=== PATIENT | female | born 2000 | race Caucasian/White ===

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

== ENCOUNTER 2020-06-17 14:45 | Emergency (ER) | payer OTHER ==
[2020-06-17] MEDS ORDERED: Zofran 4 MG/2 ML VIAL IV ONE (15:02)
[2020-06-17] MEDS ORDERED: Sodium Chloride 0.9% 1000 ML 1,000 ML IV STA (15:02)
[2020-06-17] MEDS ORDERED: MORPHINE SULFATE 4 MG INJ IV ONE (15:02)
[2020-06-17] MEDS ORDERED: TYLENOL 325 MG PO ONE (15:02)
[2020-06-17] MEDS ORDERED: Zofran 4 MG/2 ML VIAL ONE (15:23)
[2020-06-17] MEDS ORDERED: TYLENOL 325 MG ONE (15:24)
[2020-06-17] MEDS ORDERED: Sodium Chloride 0.9% 1000 ML 1,000 ML ONE (15:24)
[2020-06-17] MEDS ORDERED: MORPHINE SULFATE 4 MG INJ ONE (15:24)
[2020-06-17 15:26] LABS: Absolute Neutrophil Ct (ANC) 8.07 (1.4-6.9); BASOPHIL % 0.1 % (0.0-0.4); Basophil (Absolute #) 0.01 (0-0.4); Eosinophil % 0.3 % (0.00-5.0); Eosinophil (Absolute #) 0.03 (0-0.5); Hematocrit 37.6 % (35-47); Hemoglobin 12.7 gm/dl (12.0-16.0); Lymphocyte (Absolute #) 1.26 (1.0-4.6); Lymphocytes % 12.5 % (24.0-44.0); Mean Cell Volume 91.3 fl (78-100); Mean Corpuscular Hemoglobin 30.8 pg (26-32); Mean Corpuscular Hgb Concent. 33.8 g/dl (32-36); Mean Platelet Volume 13.3 fl (7.5-11.0); Monocyte (Absolute #) 0.71 (0.0-1.3); Neutrophil % 80.1 % (36.0-66.0); Platelet Count 146 K/mm3 (150-450); Red Blood Count 4.12 M/mm3 (4.1-5.4); Red Cell Distribution Width 12.9 % (11.5-14.0); White Blood Count 10.1 K/mm3 (4.0-10.5)
--- NOTE | 2020-06-17 15:26 | ERPHSYRPT ---
- History of Present Illness Time Seen by Provider: 06/17/20 15:00 Historian: patient Exam Limitations: no limitations Patient Subjective Stated Complaint: Pt states "I woke up with horrible pain on my left side of my belly. It goes from my hip to under my breast." Triage Nursing Assessment: Pt presented alert and oriented X 3, skin pwd Pt ambulates with an upright steady gait, crying when she moves. Pt guarding her left abdomen. Physician History: 19 years old 1 para 0 at 17 weeks gestation presented in the ER with sudden onset left flank/left lower quadrant pain waking her up from sleep, sharp cramping in nature, moderate intensity, aggravated with movements and palpation and better with being still/lying down. Denies any associated urinary symptoms. Denies any vaginal bleeding or discharge. Minimal pelvic cramping. Has nausea but no vomiting. Denies any fever or chills. Had good bowel movement today. No history of constipation. Good urine output as normal. Timing/Duration: today, sudden, worse Activities at Onset: rest Quality: cramping, sharpness Abdominal Pain Onset Location: RUQ, suprapubic, flank Severity of Pain-Max: moderate Severity of Pain-Current: moderate Modifying Factors: Improves With: lying down. Worsens With: movement Associated Symptoms: nausea Previous symptoms: no prior history Allergies/Adverse Reactions: amoxicillin [From Augmentin] Adverse Reaction (Verified 07/08/18 19:28) clavulanic acid [From Augmentin] Adverse Reaction (Verified 07/08/18 19:28) Home Medications: Vits W-Ca,Fe,FA(<1Mg) [] 1 each PO DAILY 06/17/20 [History] Hx Tetanus, Diphtheria Vaccination/Date Given: No Hx Influenza Vaccination/Date Given: No Hx Pneumococcal Vaccination/Date Given: No Immunizations Up to Date: Yes Travel Risk - International Travel Have you traveled outside of the country in past 3 weeks: No - Coronavirus Screening Are you exhibiting any of the following symptoms?: No Close contact with a COVID-19 positive Pt in past 14-21 Days: No - Review of Systems Constitutional: No Symptoms Eyes: No Symptoms Ears, Nose, & Throat: No Symptoms Respiratory: No Symptoms Cardiac: No Symptoms Abdominal/Gastrointestinal: Abdominal Pain, Nausea Genitourinary Symptoms: No Symptoms Musculoskeletal: No Symptoms Skin: No Symptoms Neurological: No Symptoms Psychological: No Symptoms Endocrine: No Symptoms Hematologic/Lymphatic: No Symptoms - Past Medical History Pertinent Past Medical History: No Neurological History: No Pertinent History ENT History: No Pertinent History Cardiac History: No Pertinent History Respiratory History: No Pertinent History Endocrine Medical History: No Pertinent History Musculoskeletal History: No Pertinent History GI Medical History: No Pertinent History History: No Pertinent History Psycho-Social History: Anxiety, Depression Female Reproductive Disorders: No Pertinent History - Past Surgical History Past Surgical History: No - Social History Smoking Status: Former smoker How long have you smoked: 2 yrs Exposure to second hand smoke: Yes Drug Use: none Patient Lives Alone: No - Female History Hx Last Menstrual Period: 02/14/2020 Hx Now: Yes Expected Date of Delivery: 11/22/20 - Nursing Vital Signs Nursing Vital Signs: Initial Vital Signs Temperature 98.9 F 06/17/20 14:57 Pulse Rate 112 H 06/17/20 14:57 Respiratory Rate 22 06/17/20 14:57 Blood Pressure 139/95 06/17/20 14:57 O2 Sat by Pulse Oximetry 97 06/17/20 14:57 Pain Scale Pain Intensity 0 - Physical Exam General Appearance: no apparent distress, alert Eye Exam: eyes nml inspection Ears, Nose, Throat Exam: normal ENT inspection, pharynx normal Neck Exam: normal inspection, supple, full range of motion Respiratory Exam: normal breath sounds, lungs clear Cardiovascular Exam: normal heart sounds, tachycardia Gastrointestinal/Abdomen Exam: soft, normal bowel sounds, tenderness (Flank/left lower quadrant), other (Gravid uterus), No guarding Back Exam: normal inspection, normal range of motion Extremity Exam: normal inspection, normal range of motion Neurologic Exam: alert, oriented x 3, cooperative, motion picture set up worker II-XII nml as tested Skin Exam: normal color SpO2 Interpretation: normal SpO2: 97 O2 Delivery: Room Air Ordered Tests: Active Orders 24 hr Category Date Time Status IV Insertion STAT Care 06/17/20 15:02 Completed ABDOMINAL-LIMITED [US] Stat Exams 06/17/20 15:02 Taken OB LIMITED [US] Stat Exams 06/17/20 15:04 Taken AMYLASE Stat Lab 06/17/20 15:07 Completed CBC W DIFF Stat Lab 06/17/20 15:07 Completed CMP Stat Lab 06/17/20 15:07 Completed CULTURE,URINE Stat Lab 06/17/20 15:07 Received LIPASE Stat Lab 06/17/20 15:07 Completed UA W/RFX UR CULTURE Stat Lab 06/17/20 15:07 Completed Medication Summary Discontinued Medications Generic Name Dose Route Start Last Admin Trade Name Adan PRN Reason Stop Dose Admin Acetaminophen 650 mg 06/17/20 15:02 06/17/20 16:01 Tylenol 325 Mg PO 06/17/20 15:03 650 mg STAT ONE Administration Acetaminophen Confirm 06/17/20 15:24 Tylenol 325 Mg Administered 06/17/20 15:25 Dose 650 mg .ROUTE .STK-MED ONE Sodium Chloride 1,000 mls @ 999 mls/hr 06/17/20 15:02 06/17/20 17:15 Sodium Chloride 0.9% 1000 Ml IV 06/17/20 16:02 Infused .Q1H1M STA Infusion Sodium Chloride Confirm 06/17/20 15:24 Sodium Chloride 0.9% 1000 Ml Administered 06/17/20 15:25 Dose 1,000 mls @ ud .ROUTE .STK-MED ONE Ceftriaxone Sodium/Dextrose 1 g in 50 mls @ 100 mls/hr 06/17/20 16:08 06/17/20 17:14 Rocephin 1 Gm-D5w 50 Ml Bag IV 06/17/20 16:37 Infused STAT STA Infusion Ceftriaxone Sodium/Dextrose Confirm 06/17/20 16:18 Rocephin 1 Gm-D5w 50 Ml Bag Administered 06/17/20 16:19 Dose 1 g in 50 mls @ ud IV .STK-MED ONE Morphine Sulfate 4 mg 06/17/20 15:02 06/17/20 16:06 Morphine Sulfate 4 Mg Inj IV 06/17/20 15:03 4 mg STAT ONE Administration Morphine Sulfate Confirm 06/17/20 15:24 Morphine Sulfate 4 Mg Inj Administered 06/17/20 15:25 Dose 4 mg .ROUTE .STK-MED ONE Ondansetron HCl 4 mg 06/17/20 15:02 06/17/20 16:04 Zofran 4 Mg/2 Ml Vial IV 06/17/20 15:03 4 mg STAT ONE Administration Ondansetron HCl Confirm 06/17/20 15:23 Zofran 4 Mg/2 Ml Vial Administered 06/17/20 15:24 Dose 4 mg .ROUTE .STK-MED ONE Lab/Rad Data: Laboratory Result Diagrams 06/17/20 15:07 06/17/20 15:07 Laboratory Results 06/17/20 06/17/20 06/17/20 Range/Units 15:07 15:07 15:07 WBC 10.1 (4.0-10.5) K/mm3 RBC 4.12 (4.1-5.4) M/mm3 Hgb 12.7 (12.0-16.0) gm/dl Hct 37.6 (35-47) % MCV 91.3 (78-100) fl MCH 30.8 (26-32) pg MCHC 33.8 (32-36) g/dl RDW 12.9 (11.5-14.0) % Plt Count 146 L (150-450) K/mm3 MPV 13.3 H (7.5-11.0) fl Gran % 80.1 H (36.0-66.0) % Eos # (Auto) 0.03 (0-0.5) Absolute Lymphs (auto) 1.26 (1.0-4.6) Absolute Monos (auto) 0.71 (0.0-1.3) Lymphocytes % 12.5 L (24.0-44.0) % Monocytes % 7.0 (0.0-12.0) % Eosinophils % 0.3 (0.00-5.0) % Basophils % 0.1 (0.0-0.4) % Absolute Granulocytes 8.07 H (1.4-6.9) Basophils # 0.01 (0-0.4) Sodium 135 L (137-145) mmol/L Potassium 3.9 (3.5-5.1) mmol/L Chloride 107 (98-107) mmol/L Carbon Dioxide 23 (22-30) mmol/L Anion Gap 9.2 (5-15) MEQ/L BUN 5 L (7-17) mg/dL Creatinine 0.46 L (0.52-1.04) mg/dL Estimated GFR > 60.0 ML/MIN Glucose 89 (74-106) mg/dL Calcium 9.4 (8.4-10.2) mg/dL Total Bilirubin 0.60 (0.2-1.3) mg/dL AST 26 (14-36) U/L ALT 24 (0-35) U/L Alkaline Phosphatase 71 (38-126) U/L Serum Total Protein 7.2 (6.3-8.2) g/dL Albumin 4.1 (3.5-5.0) g/dL Amylase 43 (30-110) U/L Lipase 38 (23-300) U/L Urine Color SYEDA (YELLOW) Urine Appearance SLIGHTLY CLOUDY (CLEAR) Urine pH 6.0 (5-6) Ur Specific [place] 1.023 (1.005-1.025) Urine Protein 30 (Negative) Urine Ketones TRACE (NEGATIVE) Urine Blood NEGATIVE (0-5) Yassine/ul Urine Nitrite NEGATIVE (NEGATIVE) Urine Bilirubin NEGATIVE (NEGATIVE) Urine Urobilinogen 4 (0-1) mg/dL Ur Leukocyte Esterase TRACE (NEGATIVE) Urine WBC (Auto) 11-15 (0-5) /HPF Urine RBC (Auto) 11-15 (0-2) /HPF U Epithel Cells (Auto) RARE (FEW) /HPF Urine Bacteria (Auto) FEW (NEGATIVE) /HPF Urine Mucus (Auto) MANY (NEGATIVE) /HPF Urine Culture Reflexed YES (NO) Urine Glucose NEGATIVE (NEGATIVE) mg/dL - Progress Progress Note: 06/17/20 17:00 She is given fluid bolus along with Tylenol and one-time dose of morphine, on reevaluation feeling much better and her pain is completely resolved. She has a normal white count, grossly unremarkable chemistry. She does have UTI and is given a dose of Rocephin in here and will continue with Cefpodoxime to go home. I have obtained ultrasound transvaginal and abdomen with good heart tones, normal abruption, bleed or any other acute OB findings but preliminary report. Also she has no acute finding in the spleen hydroureteronephrosis/pyelonephritis. Official report is pending. Patient observed for more than 2 hours and she is not in any pain. It could be due to her UTI versus round ligament versus constipation as it was seen large stool load on ultrasound. This point do not think patient needs further work-up and is stable for discharge. Discussed signs symptoms of worsening needing return to ER which he seems understanding. Counseled pt/family regarding: lab results, diagnosis, need for follow-up, rad results - Departure Departure Disposition: Home Clinical Impression: Left flank pain UTI in Qualifiers: Trimester: second trimester Qualified Code(s): O23.42 - Unspecified infection of urinary tract in , second trimester Condition: Stable Critical Care Time: No Referrals: FRANCE PICKARD [Primary Care Provider] - (tomorrow for re evaluation ) Instructions: Acute Abdomen (Belly Pain), Adult (DC), Stomach Pain in Early , Urinary Tract Infections in Additional Instructions: Take Tylenol as needed for pain. Continue with antibiotics. Follow-up with your primary OB for reevaluation tomorrow. Return to ER for worsening pain or if has pelvic cramping, vaginal bleeding or discharge. Prescriptions: Cefpodoxime Proxetil 200 mg [Vantin 200 mg] 200 mg PO BID #14 tablet
[2020-06-17 15:34] LABS: Appearance SLIGHTLY CLOUDY (CLEAR); Bacteria FEW /HPF (NEGATIVE); Bilirubin NEGATIVE (NEGATIVE); Blood NEGATIVE Ery/ul (0-5); Epithelial Cells RARE /HPF (FEW); Glucose NEGATIVE (NEGATIVE); Ketones TRACE (NEGATIVE); Leukocyte Esterase TRACE (NEGATIVE); Mucus MANY /HPF (NEGATIVE); Nitrite NEGATIVE (NEGATIVE); Protein,Urine Dip 30 (Negative); Specific Gravity 1.023 (1.005-1.025); Urobilinogen 4 mg/dL (0-1)
[2020-06-17 15:39] LABS: ALBUMIN 4.1 g/dL (3.5-5.0); ALKALINE PHOSPHATASE 71 U/L (38-126); AMYLASE 43 U/L (30-110); ANION GAP 9.2 MEQ/L (5-15); BLOOD UREA NITROGEN 5 mg/dL (7-17); CHLORIDE 107 mmol/L (98-107); Calcium 9.4 mg/dL (8.4-10.2); Carbon Dioxide 23 mmol/L (22-30); Creatinine 1 0.46 mg/dL (0.52-1.04); EST GLOMERULAR FILTRATION RATE > 60.0 ML/MIN; Glucose 89 mg/dL (74-106); LIPASE 38 U/L (23-300); Potassium 3.9 mmol/L (3.5-5.1); SGOT/AST 26 U/L (14-36); SGPT/ALT 24 U/L (0-35); SODIUM 135 mmol/L (137-145); Total Protein 7.2 g/dL (6.3-8.2)
[2020-06-17] MEDS ORDERED: ROCEPHIN 1 Gm-D5w 50 ml Bag** 1 G/50 ML IVPB IV STA (16:08)
[2020-06-17] MEDS ORDERED: ROCEPHIN 1 Gm-D5w 50 ml Bag** 1 G/50 ML IVPB IV ONE (16:18)
[2020-06-17 17:16] VITALS: BP 130/83; PULSE 67
[2020-06-17 17:26] VITALS: O2SAT 97
--- NOTE | 2020-06-17 18:56 | XRAY ---
Indication: Abdominal pain. Two-dimensional OB ultrasound performed. Comparison: May 02, 2020. Again there is a single viable intrauterine currently in transverse lie. heart rate 161 BPM. Anterior placenta without abruption/previa. BPD measures 3.51 cm corresponding to 16 weeks 6 days. HC measures 12.57 cm corresponding to 16 weeks 2 days. AC measures 11.17 cm corresponding to 17 weeks 0 days. FL measures 1.72 cm corresponding to 15 weeks 1 day. CHRISTIN is 10.3 cm. Impression: Again single viable intrauterine with mean gestational age 16 weeks 2 days. Normal progression of . No new/acute findings. Comment: Preliminary report was given.
--- NOTE | 2020-06-17 18:57 | XRAY ---
Indication: Left abdomen pain. Two-dimensional limited ultrasound of the left abdomen performed. Visualized spleen and left kidney are sonographically normal. Spleen measures 10.3 cm. Left kidney measures 12.6 cm in length. No ascites. Images of the left lower quadrant are unremarkable. Impression: Negative limited abdominal sonogram. Comment: Preliminary report was given.
== END 2020-06-17 17:39 | disposition home or self-care (01) ==
LOC: ED 14:45
DX: O23.42 Unspecified infection of urinary tract in pregnancy, second trimester (principal); Z3A.17 17 weeks gestation of pregnancy; R10.11 Right upper quadrant pain; R11.0 Nausea
CPT/HCPCS: 36000; 36415; 76705; 76815; 80053; 81001; 82150; 83690; 85025; 87077; 87086; 87186; 96360; 96365; 96374; 96375; 99284; J0696; J2270; J2405; A9270-GY

== ENCOUNTER 2020-09-24 13:54 | Emergency (ER) | payer OTHER ==
[2020-09-24 14:05] VITALS: BP 125/83; PULSE 101; O2SAT 100
--- NOTE | 2020-09-24 14:23 | ERPHSYRPT ---
- History of Present Illness Source: patient Patient Subjective Stated Complaint: Pt states "I was here a couple of days ago for the same thing. I had a c section a month ago and I had two stitched come to the surface and I trimmed them and they got infected and I have been on antibiotics since and it is not any better." Triage Nursing Assessment: Pt presented alert and oriented X 3, skin pwd. Pt ambulates with an upright steady gait, able to speak in clear full sentences. PT incision is red, swollen, seeping. Physician History: 19 yo wf wf s/p c-sec 08/20/20 in [place] presents w possible c-sec incisional infection. Pt had a course of antibiotics through her OB and was started on Bactrim DS per [facility] ER visit 2 days ago. Pt denies fever/DC but states not getting better. Timing/Duration: other (Since 08/20/20) Quality: painful Severity: mild Location: other (Supre-pubic) Possible Causes: other (Post op) Associated Symptoms: No blisters, No change in skin texture, No difficulty breathing, No edema, No fever, No headache, No hives, No jaundice, No malaise, No nasal congestion, No numbness, No pallor, No paresthesia, No petechiae, No rash, No sore throat Allergies/Adverse Reactions: amoxicillin [From Augmentin] Adverse Reaction (Verified 07/08/18 19:28) clavulanic acid [From Augmentin] Adverse Reaction (Verified 07/08/18 19:28) Home Medications: Smz/Tmp Ds Tablet [Bactrim Ds Tablet] 1 tab PO Q12H 09/24/20 [History] Hx Tetanus, Diphtheria Vaccination/Date Given: Yes Hx Influenza Vaccination/Date Given: No Hx Pneumococcal Vaccination/Date Given: No Immunizations Up to Date: Yes Travel Risk - International Travel Have you traveled outside of the country in past 3 weeks: No - Coronavirus Screening Are you exhibiting any of the following symptoms?: No Close contact with a COVID-19 positive Pt in past 14-21 Days: No - Vaccine Status Have you recieved a Covid-19 vaccination: No - Review of Systems Constitutional: No Symptoms Eyes: No Symptoms Ears, Nose, & Throat: No Symptoms Respiratory: No Symptoms Cardiac: No Symptoms Abdominal/Gastrointestinal: No Symptoms Genitourinary Symptoms: No Symptoms Musculoskeletal: No Symptoms Neurological: No Symptoms Psychological: No Symptoms Endocrine: No Symptoms Hematologic/Lymphatic: No Symptoms Immunological/Allergic: No Symptoms - Past Medical History Pertinent Past Medical History: Yes Neurological History: No Pertinent History ENT History: No Pertinent History Cardiac History: No Pertinent History Respiratory History: No Pertinent History Endocrine Medical History: No Pertinent History Musculoskeletal History: No Pertinent History GI Medical History: No Pertinent History History: No Pertinent History Psycho-Social History: Anxiety, Depression Female Reproductive Disorders: No Pertinent History - Past Surgical History Past Surgical History: Yes Other Surgical History: c section - Social History Smoking Status: Current every day smoker How long have you smoked: years Exposure to second hand smoke: Yes Drug Use: none Patient Lives Alone: No - Female History Hx Last Menstrual Period: 09/13/2020 Hx Now: No - Nursing Vital Signs Nursing Vital Signs: Initial Vital Signs Temperature 97.8 F 09/24/20 13:58 Pulse Rate 101 H 09/24/20 13:58 Respiratory Rate 22 09/24/20 13:58 Blood Pressure 125/83 09/24/20 13:58 O2 Sat by Pulse Oximetry 100 09/24/20 13:58 Pain Scale Pain Intensity 4 - Physical Exam General Appearance: no apparent distress Eye Exam: PERRL/EOMI Ears, Nose, Throat Exam: normal ENT inspection Neck Exam: normal inspection, non-tender Respiratory Exam: normal breath sounds Cardiovascular Exam: regular rate/rhythm, normal heart sounds Gastrointestinal/Abdomen Exam: soft, other (C-sec incision-Small area of breakdown at R lateral aspect of incision w small amount of erythema/No discharge/No palpable collection of exudate) Back Exam: normal inspection, normal range of motion Extremity Exam: normal inspection Neurologic Exam: alert, oriented x 3, cooperative, solvent mixer II-XII nml as tested, normal mood/affect Skin Exam: warm, dry Lymphatic Exam: No adenopathy SpO2 Interpretation: normal SpO2: 100 - Course Nursing assessment & vital signs reviewed: Yes - Departure Departure Disposition: Home Clinical Impression: Post op infection Condition: Stable Critical Care Time: No Referrals: FRANCE PICKARD [Primary Care Provider] - Instructions: Wound Care (DC) Additional Instructions: Wash incision twice a day with soap/water Continue w Bactrim twice a day Apply Bactroban twice a day Follow up with your Ob [facility] Return to ER for increasing redness/pain/temperature greater than 100.5 Prescriptions: Mupirocin [Bactroban OINTMENT] 22 gm TP BID #1 tube
== END 2020-09-24 14:37 | disposition home or self-care (01) ==
LOC: ED 13:54
DX: T81.41XD Infection following a procedure, superficial incisional surgical site, subsequent encounter (principal)
CPT/HCPCS: 99283

== ENCOUNTER 2021-06-27 16:56 | Emergency (ER) | payer OTHER ==
--- NOTE | 2021-06-27 17:25 | ERPHSYRPT ---
- History of Present Illness Time Seen by Provider: 06/27/21 17:10 Source: patient Exam Limitations: no limitations Patient Subjective Stated Complaint: pt reports she was seen last evening at [facility] for pregancy confirmation after a positive home test, reports that annmarie coughlin erickson her blood and told her she was approx 3-4 weeks and then after they did her transvaginal US told her she was not , and there was no evidence of a gestational sac, pt states after the vaginal US she began spotting then today having some heavier bleeding. pt reports wearing a pad just before coming and she had not changed it yet. pt states she took another at home test and it is positive. pt is here she states for a " second opinion" to find out if she is or not. Triage Nursing Assessment: pt is aox3, talkative with staff, pt appears in no acute distress, pt is afebrile, resps easy and non labored, radial pulses strong and equal, cap refill < 3 seconds, pt skin pink warm dry. Physician History: This is a 20-year-old white female patient of Dr. Keenan Green who has had positive tests. Yesterday, she was having some vaginal bleeding and was closer [place] [facility] [place] [facility] she went to the emergency department there for evaluation. At that evaluation, based on her beta-hCG she was estimated to be approximately 3 to 4 weeks . The ultrasound showed a uterine nabothian cyst but no evidence of any uterine implantation/fetus. She was told by them that may be too early to see a fetus at this point. Patient verbalizes that her hemoglobin was 16 yesterday. Today, she had more vaginal bleeding and she became concerned and came to the emergency department. She also took 2 more test today and they both were positive for . Patient arrives hemodynamically stable. She has no significant abdominal or pelvic pain Timing/Duration: today Activites at Onset: none Quality: other (None) Pain Radiation: none Severity of Pain-Max: none Severity of Pain-Current: none Prior abdominal problems: none Sexual intercourse history: non-contributory Modifying Factors: Improves With: nothing Associated Symptoms: vaginal discharge, No abdominal pain, No fever, No chills Allergies/Adverse Reactions: amoxicillin [From Augmentin] Adverse Reaction (Verified 06/27/21 17:17) clavulanic acid [From Augmentin] Adverse Reaction (Verified 06/27/21 17:17) Hx Tetanus, Diphtheria Vaccination/Date Given: Yes Hx Influenza Vaccination/Date Given: No Hx Pneumococcal Vaccination/Date Given: No Travel Risk - International Travel Have you traveled outside of the country in past 3 weeks: No - Coronavirus Screening Are you exhibiting any of the following symptoms?: No Close contact with a COVID-19 positive Pt in past 14-21 Days: No - Vaccine Status Have you recieved a Covid-19 vaccination: No - Review of Systems Constitutional: No Symptoms Eyes: No Symptoms Ears, Nose, & Throat: No Symptoms Respiratory: No Symptoms Cardiac: No Symptoms Abdominal/Gastrointestinal: No Symptoms Genitourinary Symptoms: Vaginal Bleeding, No Dysuria, No Frequency, No Flank Pain Musculoskeletal: No Symptoms Skin: No Symptoms Neurological: No Symptoms Psychological: No Symptoms Endocrine: No Symptoms Hematologic/Lymphatic: No Symptoms Immunological/Allergic: No Symptoms All Other Systems: Reviewed and Negative - Past Medical History Pertinent Past Medical History: Yes Neurological History: No Pertinent History ENT History: No Pertinent History Cardiac History: No Pertinent History Respiratory History: No Pertinent History Endocrine Medical History: No Pertinent History Musculoskeletal History: No Pertinent History GI Medical History: No Pertinent History History: No Pertinent History Psycho-Social History: Anxiety, Depression Female Reproductive Disorders: No Pertinent History Other Medical History: 5 miscarriages - Past Surgical History Past Surgical History: Yes Other Surgical History: c section - Social History Smoking Status: Current every day smoker How long have you smoked: years Exposure to second hand smoke: Yes Drug Use: none Patient Lives Alone: No - Female History Hx Last Menstrual Period: 05/14/21 Hx Now: Yes - Nursing Vital Signs Nursing Vital Signs: Initial Vital Signs Temperature 98.0 F 06/27/21 17:02 Pulse Rate 93 H 06/27/21 17:02 Respiratory Rate 18 06/27/21 17:02 Blood Pressure 142/98 06/27/21 17:02 O2 Sat by Pulse Oximetry 98 06/27/21 17:02 Pain Scale Pain Intensity 0 - Physical Exam General Appearance: no apparent distress, alert, anxiety Eye Exam: PERRL/EOMI, eyes nml inspection Ears, Nose, Throat Exam: normal ENT inspection, moist mucous membranes Neck Exam: normal inspection, non-tender, supple, full range of motion Respiratory Exam: normal breath sounds, lungs clear, airway intact, No chest tenderness, No respiratory distress Cardiovascular Exam: regular rate/rhythm, normal heart sounds, normal peripheral pulses Gastrointestinal/Abdomen Exam: soft, normal bowel sounds, No tenderness Pelvic Exam: not done Rectal Exam: not done Back Exam: normal inspection, normal range of motion, No CVA tenderness, No v ertebral tenderness Extremity Exam: normal inspection, normal range of motion, pelvis stable Neurologic Exam: alert, oriented x 3, cooperative, alcoholism worker II-XII nml as tested, normal mood/affect, nml cerebellar function, nml station & gait, sensation nml Skin Exam: normal color, warm, dry Lymphatic Exam: No adenopathy SpO2 Interpretation: normal SpO2: 98 O2 Delivery: Room Air - Course Nursing assessment & vital signs reviewed: Yes Ordered Tests: Active Orders 24 hr Category Date Time Status CBC W DIFF Stat Lab 06/27/21 17:59 Completed HCG, Quantitative (Inhouse) Stat Lab 06/27/21 17:59 Completed Lab/Rad Data: Laboratory Result Diagrams 06/27/21 17:59 Laboratory Results 06/27/21 06/27/21 Range/Units 17:59 17:59 WBC 9.7 (4.0-10.5) K/mm3 RBC 5.08 (4.1-5.4) M/mm3 Hgb 14.8 (12.0-16.0) gm/dl Hct 43.8 (35-47) % MCV 86.2 (78-100) fl MCH 29.1 (26-32) pg MCHC 33.8 (32-36) g/dl RDW 13.9 (11.5-14.0) % Plt Count 155 (150-450) K/mm3 MPV 13.2 H (7.5-11.0) fl Gran % 75.2 H (36.0-66.0) % Eos # (Auto) 0.04 (0-0.5) Absolute Lymphs (auto) 1.63 (1.0-4.6) Absolute Monos (auto) 0.71 (0.0-1.3) Lymphocytes % 16.9 L (24.0-44.0) % Monocytes % 7.3 (0.0-12.0) % Eosinophils % 0.4 (0.00-5.0) % Basophils % 0.2 (0.0-0.4) % Absolute Granulocytes 7.27 H (1.4-6.9) Basophils # 0.02 (0-0.4) Beta HCG, Quant 19.08 mIU/ml - Progress Progress: improved Air Movement: good Progress Note: 06/27/21 18:48 We received the lab reports from the patient's visit at [facility] [place] [facility] dated 06/26/2021. Her hemoglobin was 14.1 and her beta hCG level was 16 Blood Culture(s) Obtained: No Antibiotics given: No Counseled pt/family regarding: lab results, diagnosis, need for follow-up - Departure Departure Disposition: Home Clinical Impression: Vaginal bleeding Condition: Stable Critical Care Time: No Referrals: FRANCE TAM [Primary Care Provider] - Follow up/PCP as directed Additional Instructions: Call Dr. Keenan Green office tomorrow for further management and repeat beta- hCG.
[2021-06-27 18:03] LABS: Absolute Neutrophil Ct (ANC) 7.27 (1.4-6.9); Basophil (Absolute #) 0.02 (0-0.4); Eosinophil % 0.4 % (0.00-5.0); Eosinophil (Absolute #) 0.04 (0-0.5); Hematocrit 43.8 % (35-47); Hemoglobin 14.8 gm/dl (12.0-16.0); Lymphocyte (Absolute #) 1.63 (1.0-4.6); Lymphocytes % 16.9 % (24.0-44.0); Mean Cell Volume 86.2 fl (78-100); Mean Corpuscular Hemoglobin 29.1 pg (26-32); Mean Corpuscular Hgb Concent. 33.8 g/dl (32-36); Mean Platelet Volume 13.2 fl (7.5-11.0); Monocyte (Absolute #) 0.71 (0.0-1.3); Monocytes % 7.3 % (0.0-12.0); Neutrophil % 75.2 % (36.0-66.0); Platelet Count 155 K/mm3 (150-450); Red Blood Count 5.08 M/mm3 (4.1-5.4); Red Cell Distribution Width 13.9 % (11.5-14.0); White Blood Count 9.7 K/mm3 (4.0-10.5)
[2021-06-27 18:49] VITALS: O2SAT 98
[2021-06-27 19:07] VITALS: BP 118/87; PULSE 105
== END 2021-06-27 19:15 | disposition home or self-care (01) ==
LOC: ED 16:56
DX: N93.9 Abnormal uterine and vaginal bleeding, unspecified (principal); Z72.0 Tobacco use
CPT/HCPCS: 36415; 84702; 85025; 99283

== ENCOUNTER 2025-02-20 13:30 | Emergency (ER) | payer OTHER ==
[2025-02-20 13:55] VITALS: RESP 16; TEMP 96.2
--- NOTE | 2025-02-20 14:35 | ERPHSYRPT ---
- History of Present Illness Time Seen by Provider: 02/20/25 13:33 Source: patient Patient Subjective Stated Complaint: pt states that she smashed her finger in the tractor yesterday and today smashed it in the door Triage Nursing Assessment: pt ambulated into the er; pt is axo x4; c/o finger injury; pt states 4/10 pain to left index finger; pt has redness and swelling present to left distal index finger; strong left radial pulse; good cap refill to left hand; skin PDW; no respiratory distress present; hypertensive Physician History: This is a [id number] female who had her left finger #2 distal phalanx under a tractor which came down off a tereza yesterday and then again got pinched in a door today. Patient has swelling and pain in her right distal phalanx lateral. No other injury. Can move fingers normally. Sensory intact. Allergies/Adverse Reactions: amoxicillin [From Augmentin] Adverse Reaction (Verified 02/20/25 13:47) clavulanic acid [From Augmentin] Adverse Reaction (Verified 02/20/25 13:47) Hx Tetanus, Diphtheria Vaccination/Date Given: Yes Hx Influenza Vaccination/Date Given: No Hx Pneumococcal Vaccination/Date Given: No Travel Risk - International Travel Have you traveled outside of the country in past 3 weeks: No - Emerging Infectious Disease Are you exhibiting symptoms associated with any current EIDs: No - Review of Systems All Other Systems: Reviewed and Negative (As per HPI otherwise negative) - Past Medical History Pertinent Past Medical History: Yes Neurological History: No Pertinent History ENT History: No Pertinent History Cardiac History: No Pertinent History Respiratory History: No Pertinent History Endocrine Medical History: No Pertinent History Musculoskeletal History: No Pertinent History GI Medical History: No Pertinent History History: No Pertinent History Psycho-Social History: Anxiety, Depression Female Reproductive Disorders: No Pertinent History Other Medical History: 5 miscarriages - Past Surgical History Past Surgical History: Yes Other Surgical History: c section - Female History Hx Now: No - Social History Smoking Status: Smoker, status unknown How long have you smoked: years Exposure to second hand smoke: Yes Drug Use: none - Social Determinants of Health Will the patient participate in the screening: Declined to provide - Nursing Vital Signs Nursing Vital Signs: Initial Vital Signs Pulse Rate 95 H 02/20/25 13:46 Blood Pressure 152/98 02/20/25 13:46 O2 Sat by Pulse Oximetry 100 02/20/25 13:46 Pain Scale Pain Intensity 2 - Physical Exam SpO2: 100 Comments: 02/20/25 14:34 General: Well-nourished well-developed. No apparent distress. HEENT: Normocephalic atraumatic no obvious facial or neck deformity or injury. Neck: Supple. No deformity or mass noted. CV: RRR NL Perfusion. No edema Resp: No Respiratory distress or adventitious breath sounds Abd: ND SNT MSK: Bilateral upper extremity normal except for left finger #2 distal phalanx worse patient has a likely hematoma no evidence of seroma or felon based on history. No warmth. Discharge. Neuro: Alert and Canvas x4. No gross focal neurologic changes Psych: No SI, HI or grave disability Procedures - Incision and Drainage Timeout: Performed Site: Left index finger #2 Anesthesia: 1% Lidocaine (Ring block) cc's of anesthesia: 4 Blade Size: other (18-gauge needle) I & D Procedure: betadine prep Results: small amount pus Ordered Tests: Active Orders 24 hr Category Date Time Status FINGER(S) Stat Exams 02/20/25 14:36 Completed Medication Summary Discontinued Medications Generic Name Dose Route Start Last Admin Trade Name Adan PRN Reason Stop Dose Admin Lidocaine HCl 5 ml 02/20/25 15:23 02/20/25 15:23 Lidocaine Hcl 1% 20 Ml Mdv 20 Ml Ml IJ 02/20/25 15:24 5 ml STAT ONE Administration Lidocaine HCl Confirm 02/20/25 15:22 Lidocaine Hcl 1% 20 Ml Mdv 20 Ml Ml Administered 02/20/25 15:23 Dose 5 ml .ROUTE .STK-MED ONE - Progress Progress Note: 02/20/25 17:20 Patient has small amount of pus drained small remote blood. Not able to express anything more after 2 18-gauge needles from different direction. Some of this may be edema. I do feel that patient will need antibiotic with soaking with Epsom salt which I arrived in great detail. I provided her with a basin with Hibiclens solution to soak the finger in in the meantime. I do want her to come back tomorrow for recheck. She is to take antibiotics first dose in the emergency department and then prescription. She does admit that she bites her nails and that she is "hit this finger many times". She states she has hit the finger in door jam's, dropped something on it as a scribe for this visit and had not yet another injury this morning to the same site. I feel this is more paronychia mine with edema. - Departure Departure Disposition: Home Clinical Impression: Paronychia Condition: Stable Critical Care Time: No Referrals: RU GOMEZ, [Primary Care Provider, OBSTETRICS-GYNECOLOGY] - Follow up/PCP as directed Instructions: Paronychia, Paronychia - ED discharge instructions Additional Instructions: Return for wound check tomorrow either to the emergency department or your primary care doctor. Take medications as prescribed. Fill tonight. You have been evaluated for an emergency medical condition. At this time, given the current history and events presented, the examination conducted and any possible testing you may have had, you have been given a presumptive diagnosis based on the current information is obtained. Your discharge diagnosis is presumptive and not necessarily definitive. Medical conditions present in various stages very often without all the symptoms or findings described in medical literature. Other symptoms, concerns or conditions may arise and your diagnoses may evolve or change and/or your condition could potentially worsen after the time of disposition or discharge. You have been given a presumptive diagnosis and your condition appears to be stable, but your medical issues can change or worsen. If there is worsening of your condition including difficulty breathing, swallowing, speaking, chest pain or pressure, intractable vomiting, worsening or changing mental status, numbness, tingling or weakness of your body or arms or legs, thoughts or plans of harming yourself or others, or any other concerns, call 911 and/or return immediately to the closest emergency department. It is important you follow-up with your doctor on the next business day. Call your doctor, or the referral provided if you do not have a doctor, when they open to schedule a follow-up appointment in the next 1 or latest 2 days. Please refer to the attached sheet. If you do not have primary care doctor, you can call the [facility] referral line at [phone]. Return immediately if your symptoms worsen or if you are unable to obtain further care. My team and I thank you for choosing the [facility] emergency healthcare needs. We wish you a speedy recovery. Very respectfully, Dr. Moris Green M.D. [employer] Board-certified Emergency Physician Prescriptions: Ibuprofen [Ibu] 800 mg PO Q8H PRN PRN #20 tablet PRN Reason: Pain clindamycin HCL [Clindamycin HCl] 300 mg PO QID 10 Days cap clindamycin HCL [Clindamycin HCl] 300 mg PO QID 10 Days #20 cap
--- NOTE | 2025-02-20 15:21 | XRAY ---
Indication: Trauma. Comparison: None 3 view left 2nd finger demonstrates distal soft tissue swelling ulnar aspect. No other bony, articular, or soft tissue abnormalities.
[2025-02-20] MEDS ORDERED: XYLOCAINE 1% HCL 20 ML MDV ONE (15:22)
[2025-02-20] MEDS: XYLOCAINE 1% HCL 20 ML MDV IJ ONE (15:23)
[2025-02-20 17:27] VITALS: O2SAT 100
[2025-02-20] MEDS ORDERED: MOTRIN 600 MG ONE (17:30)
[2025-02-20] MEDS ORDERED: CLEOCIN 150 MG CAPSULE ONE (17:31)
[2025-02-20] MEDS: MOTRIN 600 MG PO ONE (17:32)
[2025-02-20] MEDS: CLEOCIN 150 MG CAPSULE PO ONE (17:32)
[2025-02-20 17:36] VITALS: BP 149/120; PULSE 73
== END 2025-02-20 17:39 | disposition home or self-care (01) ==
LOC: ED 13:30
DX: L03.012 Cellulitis of left finger (principal); M79.645 Pain in left finger(s); Z79.899 Other long term (current) drug therapy

== ENCOUNTER 2025-02-21 11:05 | Emergency (ER) | payer OTHER ==
[2025-02-21 11:21] VITALS: RESP 18; TEMP 97.5; O2SAT 100
--- NOTE | 2025-02-21 11:48 | ERPHSYRPT ---
- History of Present Illness Time Seen by Provider: 02/21/25 11:40 Patient Subjective Stated Complaint: states she is here for a check up to her finger, she came in yesterday after smashing her left second digit in a truck door. Stated that the doctor here in the ER told her to come back in today to see if it needed lanced. no pain and she is taking ATB as prescribed. Triage Nursing Assessment: pt ambulated per self, with her boyfriend at bedside. She has a swollen, red Left 2nd digit. States no pain. no drainage noted. Physician History: This 24-year-old ovgff-flit-grjthdfq female who had a left finger #2 paronychia drained yesterday here for wound check. Patient states it is "much better". Patient has been using Epsom salt soaks as directed and taking her clindamycin antibiotic. She stated the first time she soaked it, "a lot of bad stuff came out". She states it is much smaller and has no pain today. No fever or chills. No pain with moving hands or limitation with moving fingers. Allergies/Adverse Reactions: amoxicillin [From Augmentin] Adverse Reaction (Verified 02/20/25 13:47) clavulanic acid [From Augmentin] Adverse Reaction (Verified 02/20/25 13:47) Hx Tetanus, Diphtheria Vaccination/Date Given: Yes Hx Influenza Vaccination/Date Given: Yes Hx Pneumococcal Vaccination/Date Given: No Immunizations Up to Date: Yes Travel Risk - International Travel Have you traveled outside of the country in past 3 weeks: No - Emerging Infectious Disease Are you exhibiting symptoms associated with any current EIDs: No - Review of Systems All Other Systems: Reviewed and Negative - Past Medical History Pertinent Past Medical History: Yes Neurological History: No Pertinent History ENT History: No Pertinent History Cardiac History: No Pertinent History Respiratory History: No Pertinent History Endocrine Medical History: No Pertinent History Musculoskeletal History: No Pertinent History GI Medical History: No Pertinent History History: No Pertinent History Psycho-Social History: Anxiety, Depression Female Reproductive Disorders: No Pertinent History Other Medical History: 5 miscarriages - Past Surgical History Past Surgical History: Yes Other Surgical History: c section - Female History Hx Last Menstrual Period: 02/13/2025 Hx Now: No - Social History Smoking Status: Current every day smoker How long have you smoked: 10 years Drug Use: none - Social Determinants of Health Will the patient participate in the screening: Yes Do you worry about a steady place to live?: Yes Do you have any problems with any of the following?: No known problems In the past 12 months,have you had to go without utilities?: No Transportation Issues: No Has anyone in your support network made you feel unsafe?: No Have you or anyone in your house had to go w/o enough food: No - Nursing Vital Signs Nursing Vital Signs: Initial Vital Signs Temperature 97.5 F 02/21/25 11:09 Pulse Rate 82 02/21/25 11:09 Respiratory Rate 18 02/21/25 11:09 Blood Pressure 154/108 02/21/25 11:09 O2 Sat by Pulse Oximetry 100 02/21/25 11:09 Pain Scale Pain Intensity 0 - Physical Exam SpO2: 100 Comments: 02/21/25 11:49 Right finger #2 with the great José improved examination. Erythema is greatly diminished in size of the initial presentation is much smaller. There is no tenderness to palpation. She has full range of motion of flexion extension of the finger without pain. Less than 2-second capillary refill. No tenderness. - Progress Progress Note: 02/21/25 11:50 Patient will continue with her treatment. At this time the wound paronychia looks greatly improved. We do discussed that it could worsen or fail to improve and she is to return to the does not improve or resolve. She is counseled to stop biting her nails as I suspect based on the nail tips and skin around the nails of her multiple fingers that she has been doing this which she admits. - Departure Departure Disposition: Home Clinical Impression: Wound check, abscess, Paronychia of finger Condition: Stable Critical Care Time: No Referrals: RU GOMEZ DO [Primary Care Provider, OBSTETRICS-GYNECOLOGY] - Follow up/PCP as directed Instructions: Paronychia, Wound care - ED discharge instructions Additional Instructions: Continue soaking the wound with warm water and Epsom salt 4 times a day for minimum 20 minutes. Continue antibiotics as directed. Return if any worsening or failure to resolve. You have been evaluated for an emergency medical condition. At this time, given the current history and events presented, the examination conducted and any possible testing you may have had, you have been given a presumptive diagnosis based on the current information is obtained. Your discharge diagnosis is presumptive and not necessarily definitive. Medical conditions present in various stages very often without all the symptoms or findings described in medical literature. Other symptoms, concerns or conditions may arise and your diagnoses may evolve or change and/or your condition could potentially worsen after the time of disposition or discharge. You have been given a presumptive diagnosis and your condition appears to be stable, but your medical issues can change or worsen. If there is worsening of your condition including difficulty breathing, swallowing, speaking, chest pain or pressure, intractable vomiting, worsening or changing mental status, numbness, tingling or weakness of your body or arms or legs, thoughts or plans of harming yourself or others, or any other concerns, call 911 and/or return immediately to the closest emergency department. It is important you follow-up with your doctor on the next business day. Call your doctor, or the referral provided if you do not have a doctor, when they open to schedule a follow-up appointment in the next 1 or latest 2 days. Please refer to the attached sheet. If you do not have primary care doctor, you can call the [facility] referral line at [phone]. Return immediately if your symptoms worsen or if you are unable to obtain further care. My team and I thank you for choosing the [facility] Emergency Department emergency healthcare needs. We wish you a speedy recovery. Very respectfully, Dr. Moris Green M.D. [employer] Board-certified Emergency Physician
[2025-02-21 11:52] VITALS: BP 154/85; PULSE 80
== END 2025-02-21 11:52 | disposition home or self-care (01) ==
LOC: ED 11:05
DX: L03.011 Cellulitis of right finger (principal); Z79.899 Other long term (current) drug therapy; Z72.0 Tobacco use; Z59.819 Housing instability, housed unspecified